=== PATIENT | male | born 1990 | race Caucasian/White ===

== ENCOUNTER 2021-11-22 10:09 | Emergency (ER) | payer BC ==
[~2021-11-22] VITALS: Ht 180.3 cm; Wt 78.6 kg
[2021-11-22 10:13] VITALS: BP 127/86
[2021-11-22] MEDS ORDERED: KETOROLAC TROMETHAMINE 10 MG TABLET PO ONE (12:00)
[2021-11-22] MEDS ORDERED: NAPR-1025 PO (12:47)
== END 2021-11-22 13:30 | disposition home or self-care (01) ==
LOC: EMS 10:22
DX: S83.92XA Sprain of unspecified site of left knee, initial encounter (principal); X58.XXXA Exposure to other specified factors, initial encounter; Y93.89 Activity, other specified; Y92.89 Other specified places as the place of occurrence of the external cause; Y99.8 Other external cause status
CPT/HCPCS: 99283